=== PATIENT | female | born 1950 | race Caucasian/White ===

== ENCOUNTER 2021-03-27 09:57 | Emergency (ER) | payer MEDICARE, OTHER ==
[2021-03-27 13:03] LABS: BUN/CREATININE RATIO 11 (0-10)
[2021-03-27 13:12] LABS: HEMOGLOBIN 13.7 gm/dl (12.3-15.3); RED BLOOD COUNT 4.54 M/UL (4.00-5.10); WHITE BLOOD COUNT 4.6 K/UL (4.5-11.0)
== END 2021-03-27 14:23 | disposition home or self-care (01) ==
LOC: ER1 09:57
PROVIDERS: Physician Assistant
DX: R10.9 Unspecified abdominal pain (principal); I10 Essential (primary) hypertension; Z85.3 Personal history of malignant neoplasm of breast; Z79.899 Other long term (current) drug therapy; Z90.89 Acquired absence of other organs
CPT/HCPCS: 80053; 81001; 85025; 99284

== ENCOUNTER 2022-02-05 09:37 | Emergency (ER) | payer MEDICARE, OTHER ==
[2022-02-05 10:44] LABS: HEMOGLOBIN 12.4 gm/dl (12.3-15.3); RED BLOOD COUNT 4.25 M/UL (4.00-5.10); WHITE BLOOD COUNT 6.4 K/UL (4.5-11.0)
[2022-02-05 11:08] LABS: BUN/CREATININE RATIO 15 (0-10)
== END 2022-02-05 11:40 | disposition home or self-care (01) ==
LOC: ER1 09:37
PROVIDERS: Emergency Medicine
DX: R00.2 Palpitations (principal); I10 Essential (primary) hypertension
CPT/HCPCS: 71045; 80053; 84439; 84443; 84484; 85025; 86140; 93005; 99285